=== PATIENT | female | born 1990 | race Caucasian/White ===

== ENCOUNTER 2018-10-22 03:05 | Emergency (ER) | payer MEDICAID ==
[~2018-10-22] VITALS: Ht 157.5 cm; Wt 68.0 kg
[2018-10-22 03:05] VITALS: BP 135/87
[~2018-10-22 03:05] MED LIST: IBUP-2213 PO
--- NOTE | 2018-10-22 03:13 | NUR ---
PT TO ER BED 10
--- NOTE | 2018-10-22 03:27 | NUR ---
PATIENT PRESENTS TO ED WITH vaginal bleeding. PT STATES she is 14 weeks , lower back pain started yesterday followed by heavy bleeding today. DENIES N/V/D; SKIN IS PINK/WARM/DRY; AAOX4; PT DENIES ANY FEVER, CP, SOB, OR COUGH AT THIS TIME; PATIENT STATES sharp PAIN OF 6/10 AT THIS TIME; VSS; PATIENT POSITIONED FOR COMFORT; HOB ELEVATED; BEDRAILS UP X2; BED DOWN. ER MD MADE AWARE OF PT STATUS. ED MD NOTIFIED OF PT CONDITION.
[2018-10-22 03:58] LABS: HEMOGLOBIN 11.8 g/dL (12.0-16.0); RED BLOOD CELL COUNT(AUTO) 4.82 MIL/uL (4.20-5.40); WHITE BLOOD COUNT (AUTO) 11.4 K/uL (4.8-10.8)
[2018-10-22 03:59] LABS: HEMATOCRIT 35.4 % (36-48); MEAN CORPUSCULAR HEMOGLOBIN 24 pg (27-31); MEAN CORPUSCULAR HGB CONC 31 g/dL (33-37); PLATELET COUNT (AUTO) 204 K/uL (140-450); RED CELL DISTRIBUTION WIDTH 21.9 % (11.6-13.7)
[2018-10-22 04:00] LABS: BASOPHILS % (AUTO) 2.4 % (0.0-2.0); EOSINOPHILS # (AUTO) 0.2 K/uL (0-0.4); EOSINOPHILS % (AUTO) 1.8 % (0.0-4.0); LYMPHOCYTES # (AUTO) 2.4 K/uL (2.5-16.5); LYMPHOCYTES % (AUTO) 20.8 % (20.5-51.1); MONOCYTES # (AUTO) 0.9 K/uL (0.8-1.0); MONOCYTES % (AUTO) 7.6 % (1.7-9.3); NEUTROPHILS # (AUTO) 7.6 K/uL (1.8-7.7); NEUTROPHILS % (AUTO) 67.4 % (42.2-75.2)
[2018-10-22 04:01] LABS: BASOPHILS # (AUTO) 0.3 K/uL (0.00-0.22)
[2018-10-22] MEDS ORDERED: ACETAMINOPHEN EXTRA STRENGTH 500 MG TAB PO ONE (04:15)
[2018-10-22] MEDS ORDERED: ONDANSETRON 4 MG/2 ML VIAL IVP ONE (04:35)
[2018-10-22] MEDS ORDERED: MORPHINE SULFATE 4 MG/ML SYR IVP ONE (04:35)
[2018-10-22 04:52] LABS: APPEARANCE,URINE CLOUDY (CLEAR); BILIRUBIN,URINE NEGATIVE (NEGATIVE); BLOOD, URINE LARGE (NEGATIVE); COLOR,URINE RED (YELLOW); LEUKOCYTE ESTERASE ,URINE TRACE (NEGATIVE); NITRITE, URINE NEGATIVE (NEGATIVE); PH,URINE 5.5 (5.0-9.0); UGLUCOSE NEGATIVE (NEGATIVE)
[2018-10-22 04:57] LABS: RBC,URINE TOO NUMEROUS TO COUN /HPF (0-5)
--- NOTE | 2018-10-22 05:02 | NUR ---
PATIENT EXPERIENCED SENSETIVITY TO MORPHINE, ONLY ADMINISTERED 0.5ML. ER MED NOTIFIED
[2018-10-22 05:25] VITALS: BP 148/86
--- NOTE | 2018-10-22 05:25 | NUR ---
Patient discharged with v/s stable. Written and verbal after care instructions given and explained. Patient alert, oriented and verbalized understanding of instructions. Ambulatory with steady gait. All questions addressed prior to discharge. ID band removed. Patient advised to follow up with PMD. Rx of NORCO AND ZOFRAN given. Patient educated on indication of medication including possible reaction and side effects. Opportunity to ask questions provided and answered.
== END 2018-10-22 05:25 | disposition home or self-care (01) ==
LOC: MED 03:05
DX: O03.4 Incomplete spontaneous abortion without complication (principal); Z3A.14 14 weeks gestation of pregnancy
CPT/HCPCS: 36415; 76830; 81001; 84702; 85025; 86900; 86901; 87086; 96374; 96375; 99284; J2270; J2405; Q0092

== ENCOUNTER 2018-10-22 10:36 | Emergency (ER) | payer MEDICAID ==
[~2018-10-22] VITALS: Ht 160 cm; Wt 56.7 kg
[2018-10-22 10:42] VITALS: BP 143/75
--- NOTE | 2018-10-22 10:50 | NUR ---
28 YO F BIB FAMILY AFTER MISCARRYNG AT HOME. PT WAS SEEN HERE AROUND 0300 TOLD NO HEARTBEAT AND GIVEN PAIN MEDS THEN D/C. PT PASSED THE BABY THIS MORNING. REPORTS BLEEDING AND ABD CRAMPING REQUESTING BEING SEEN TO MAKE SURE ALL REMNANTS HAVE BEEN SHED. DENIES N/V/D; SKIN IS PINK/WARM/DRY; AAOX4 WITH EVEN AND STEADY GAIT; LUNGS CLEAR BL; HR EVEN AND REGULAR; PT DENIES ANY FEVER, CP, SOB, OR COUGH AT THIS TIME; PATIENT STATES PAIN OF 5/10 AT THIS TIME; VSS; PATIENT POSITIONED FOR COMFORT; HOB ELEVATED; BEDRAILS UP X2; BED DOWN. ER MD MADE AWARE OF PT STATUS.
--- NOTE | 2018-10-22 11:07 | NUR ---
Dr. Obando at bedside.
[2018-10-22 11:22] VITALS: BP 143/75
--- NOTE | 2018-10-22 11:24 | NUR ---
Patient discharged with v/s stable. Written and verbal after care instructions given and explained. Patient verbalized understanding. Ambulatory with steady gait. All questions addressed prior to discharge. Advised to follow up with PMD.
== END 2018-10-22 11:24 | disposition home or self-care (01) ==
LOC: MED 10:36
DX: O03.9 Complete or unspecified spontaneous abortion without complication (principal); Z79.899 Other long term (current) drug therapy
CPT/HCPCS: 99281

== ENCOUNTER 2018-11-02 08:39 | Emergency (ER) | payer MEDICAID ==
[~2018-11-02] VITALS: Ht 160 cm; Wt 68.0 kg
--- NOTE | 2018-11-02 09:00 | NUR ---
ACCOMPANIED BY C/O HEAVY VAGINAL BLEEDING >7 [facility] [place] THIS AM---PALE APPEARING WITH ABDOMINAL CRAMPING ---SEEN IN OUR ER 10/22/2018 MISCARRIAGE HX---DENIES RX---NONE
[2018-11-02] MEDS ORDERED: NACL 0.9% 1,000 ML IV SCH (09:08)
[2018-11-02] MEDS ORDERED: KETOROLAC 30 MG/ML VIAL IVP ONE (09:10)
[2018-11-02] MEDS ORDERED: ONDANSETRON 4 MG/2 ML VIAL IVP ONE (09:10)
--- NOTE | 2018-11-02 09:27 | NUR ---
US AT BEDSIDE.
[2018-11-02 09:28] LABS: BASOPHILS # (AUTO) 0.1 K/uL (0.00-0.22); BASOPHILS % (AUTO) 0.5 % (0.0-2.0); EOSINOPHILS % (AUTO) 0.1 % (0.0-4.0); HEMATOCRIT 35.3 % (36-48); HEMOGLOBIN 11.5 g/dL (12.0-16.0); LYMPHOCYTES # (AUTO) 1.3 K/uL (2.5-16.5); LYMPHOCYTES % (AUTO) 11.3 % (20.5-51.1); MEAN CORPUSCULAR HEMOGLOBIN 26 pg (27-31); MEAN CORPUSCULAR HGB CONC 33 g/dL (33-37); MEAN CORPUSCULAR VOLUME 79.8 fL (80-94); MONOCYTES # (AUTO) 0.6 K/uL (0.8-1.0); MONOCYTES % (AUTO) 4.8 % (1.7-9.3); NEUTROPHILS # (AUTO) 9.9 K/uL (1.8-7.7); NEUTROPHILS % (AUTO) 83.3 % (42.2-75.2); PLATELET COUNT (AUTO) 220 K/uL (140-450); RED BLOOD CELL COUNT(AUTO) 4.42 MIL/uL (4.20-5.40); RED CELL DISTRIBUTION WIDTH 21.7 % (11.6-13.7); WHITE BLOOD COUNT (AUTO) 11.9 K/uL (4.8-10.8)
--- NOTE | 2018-11-02 09:46 | NUR ---
PT UP TO BR AMBULATORY W/ STE[facility]Y GATE, ACCOMPANIED BY
[2018-11-02 09:48] LABS: ANION GAP 13.6 (8-16); CARBON DIOXIDE 25.2 mmol/L (21-32); POTASSIUM 3.8 mmol/L (3.5-5.1)
[2018-11-02 09:49] LABS: ALBUMIN 3.3 g/dL (3.4-5.0); CREATININE 0.6 mg/dL (0.6-1.3); TOTAL BILIRUBIN 0.2 mg/dL (0.0-1.0)
--- NOTE | 2018-11-02 10:10 | NUR ---
Patient appears to be resting comfortably in bed. Vital Signs within normal limits. Respirations even and unlabored. at bedside
--- NOTE | 2018-11-02 10:40 | NUR ---
PT UP TO THE BR AMBULATORY W/STEADY GATE WE RN AT SIDE. UNDERPAD CHANGED.
--- NOTE | 2018-11-02 10:49 | NUR ---
PT BACK IN BED. AT BEDSIDE.
--- NOTE | 2018-11-02 12:01 | NUR ---
Patient discharged with v/s stable. Written and verbal after care instructions given and explained. Patient alert, oriented and verbalized understanding of instructions. Ambulatory with steady gait. All questions addressed prior to discharge. ID band removed. IV removed, cath intact, pressure and bandage applied. Patient advised to follow up with PMD. Rx of MOTRIN, ZOFRAN, AND NORCO given. Patient educated on indication of medication including possible reaction and side effects. Opportunity to ask questions provided and answered.
[2018-11-02 12:03] VITALS: BP 101/60
== END 2018-11-02 12:01 | disposition home or self-care (01) ==
LOC: MED 08:39
DX: N93.9 Abnormal uterine and vaginal bleeding, unspecified (principal); R10.30 Lower abdominal pain, unspecified; Z79.1 Long term (current) use of non-steroidal anti-inflammatories (NSAID)
CPT/HCPCS: 36415; 76856; 80053; 81002; 81025; 83690; 84702; 85025; 96374; 96375; 99284; J1885; J2405; J7030; Q0092

== ENCOUNTER 2024-01-04 14:30 | Observation (INO) | payer MEDICAID, OTHER ==
[~2024-01-04] VITALS: Ht 162.6 cm; Wt 78.5 kg
[2024-01-04 14:35] VITALS: BP 155/92; PULSE 81; RESP 16; TEMP 97.5; O2SAT 100
[2024-01-04 15:17] LABS: BASOPHILS # (AUTO) 0.1 K/uL (0.00-0.22); BASOPHILS % (AUTO) 1.1 % (0.0-2.0); EOSINOPHILS # (AUTO) 0.1 K/uL (0-0.4); EOSINOPHILS % (AUTO) 0.6 % (0.0-4.0); HEMATOCRIT 25.1 % (36-48); HEMOGLOBIN 7.3 g/dL (12.0-16.0); LYMPHOCYTES % (AUTO) 18.8 % (20.5-51.1); MEAN CORPUSCULAR HEMOGLOBIN 17 pg (27-31); MEAN CORPUSCULAR HGB CONC 29 g/dL (33-37); MEAN CORPUSCULAR VOLUME 57.7 fL (80-94); MONOCYTES # (AUTO) 0.5 K/uL (0.8-1.0); MONOCYTES % (AUTO) 4.9 % (1.7-9.3); NEUTROPHILS # (AUTO) 7.9 K/uL (1.8-7.7); NEUTROPHILS % (AUTO) 74.6 % (42.2-75.2); PLATELET COUNT (AUTO) 272 K/uL (140-450); RED BLOOD CELL COUNT(AUTO) 4.35 MIL/uL (4.20-5.40); RED CELL DISTRIBUTION WIDTH 20.4 % (11.6-13.7); WHITE BLOOD COUNT (AUTO) 10.6 K/uL (4.8-10.8)
[2024-01-04] MEDS: LORazepam 0.5 MG TAB PO ONE (15:24)
[2024-01-04 15:35] LABS: ANION GAP 10.4 (8-16); CALCIUM 8.8 mg/dL (8.5-10.1); CARBON DIOXIDE 28.2 mmol/L (21-32); CREATININE 0.7 mg/dL (0.6-1.3); POTASSIUM 3.6 mmol/L (3.5-5.1)
[2024-01-04] MEDS ORDERED: KETOROLAC 30 MG/ML VIAL ONE (17:47)
[2024-01-04] MEDS: KETOROLAC 30 MG/ML VIAL IVP ONE (17:51)
[2024-01-04 18:42] LABS: INR 0.94 (0.8-1.2); PARTIAL THROMBOPLASTIN TIME 22.8 secs (22-35.6); PROTHROMBIN TIME 9.9 secs (10.8-13.4)
[2024-01-04] MEDS: SODIUM CHLORIDE FLUSH 10 ML SYR IVF SCH (21:04)
[2024-01-04] MEDS: NACL 0.9% 1,000 ML IV SCH (21:04)
[2024-01-05] MEDS: HYDROcodone/APAP 5/325 MG 1 TAB TAB PO PRN (05:10)
[2024-01-05 07:09] LABS: BASOPHILS # (AUTO) 0.1 K/uL (0.00-0.22); BASOPHILS % (AUTO) 1.1 % (0.0-2.0); EOSINOPHILS # (AUTO) 0.2 K/uL (0-0.4); HEMATOCRIT 26.3 % (36-48); HEMOGLOBIN 7.9 g/dL (12.0-16.0); LYMPHOCYTES # (AUTO) 2.3 K/uL (2.5-16.5); LYMPHOCYTES % (AUTO) 27.5 % (20.5-51.1); MEAN CORPUSCULAR HEMOGLOBIN 18 pg (27-31); MEAN CORPUSCULAR HGB CONC 30 g/dL (33-37); MEAN CORPUSCULAR VOLUME 60.8 fL (80-94); MONOCYTES # (AUTO) 0.6 K/uL (0.8-1.0); MONOCYTES % (AUTO) 7.3 % (1.7-9.3); NEUTROPHILS # (AUTO) 5.1 K/uL (1.8-7.7); NEUTROPHILS % (AUTO) 62.1 % (42.2-75.2); PLATELET COUNT (AUTO) 247 K/uL (140-450); RED BLOOD CELL COUNT(AUTO) 4.33 MIL/uL (4.20-5.40); RED CELL DISTRIBUTION WIDTH 23.1 % (11.6-13.7); WHITE BLOOD COUNT (AUTO) 8.2 K/uL (4.8-10.8)
[2024-01-05 07:42] LABS: ANION GAP 11.4 (8-16); CALCIUM 8.2 mg/dL (8.5-10.1); CARBON DIOXIDE 26.5 mmol/L (21-32); CREATININE 0.6 mg/dL (0.6-1.3); POTASSIUM 3.9 mmol/L (3.5-5.1); TOTAL BILIRUBIN 0.4 mg/dL (0.0-1.0); TOTAL PROTEIN, SERUM 7.4 g/dL (6.4-8.2)
[2024-01-05] MEDS ORDERED: FERROUS SULFATE 325 MG TABEC PO SCH (08:00)
[2024-01-05 11:00] VITALS: PULSE 54; RESP 18; O2SAT 99
[2024-01-05 12:00] VITALS: BP 123/68; PULSE 54; PULSE 65; RESP 18; TEMP 97.5; O2SAT 99
[2024-01-05] MEDS: SODIUM FERRIC GLUCONATE 125 MG in NACL 0.9% 100 ML IV SCH (13:10)
[2024-01-05 16:00] VITALS: BP 143/76; PULSE 68; PULSE 73; RESP 18; TEMP 98; O2SAT 100
[2024-01-05 20:00] VITALS: BP 136/65; PULSE 63; PULSE 67; RESP 20; TEMP 98.8; O2SAT 96
[2024-01-05] MEDS: ONDANSETRON 4 MG/2 ML VIAL ONE (21:42)
[2024-01-05] MEDS: ACETAMINOPHEN 325 MG TAB PO PRN (21:51)
[2024-01-05] MEDS: medroxyPROGESTERone 10 MG TAB PO SCH (21:53)
[2024-01-06] VITALS: PULSE 81
[2024-01-06 04:00] VITALS: BP 134/65; PULSE 53; PULSE 61; RESP 18; TEMP 97.5; O2SAT 96
[2024-01-06 08:00] VITALS: BP 145/79; PULSE 64; RESP 17; RESP 18; TEMP 97.4; O2SAT 100
[2024-01-06] MEDS ORDERED: FERR1TAB42 PO (10:46)
[2024-01-06] MEDS ORDERED: ACET-1182 PO (10:46)
[2024-01-06] MEDS ORDERED: MEDR10TA33 PO (10:47)
[2024-01-06 11:44] LABS: BASOPHILS # (AUTO) 0.1 K/uL (0.00-0.22); BASOPHILS % (AUTO) 0.9 % (0.0-2.0); EOSINOPHILS # (AUTO) 0.2 K/uL (0-0.4); EOSINOPHILS % (AUTO) 1.8 % (0.0-4.0); HEMATOCRIT 27.9 % (36-48); HEMOGLOBIN 8.2 g/dL (12.0-16.0); LYMPHOCYTES # (AUTO) 2.2 K/uL (2.5-16.5); LYMPHOCYTES % (AUTO) 25.1 % (20.5-51.1); MEAN CORPUSCULAR HEMOGLOBIN 18 pg (27-31); MEAN CORPUSCULAR HGB CONC 30 g/dL (33-37); MEAN CORPUSCULAR VOLUME 61.2 fL (80-94); MONOCYTES # (AUTO) 0.5 K/uL (0.8-1.0); MONOCYTES % (AUTO) 6.2 % (1.7-9.3); NEUTROPHILS # (AUTO) 5.7 K/uL (1.8-7.7); PLATELET COUNT (AUTO) 267 K/uL (140-450); RED BLOOD CELL COUNT(AUTO) 4.56 MIL/uL (4.20-5.40); WHITE BLOOD COUNT (AUTO) 8.6 K/uL (4.8-10.8)
[2024-01-06 12:00] VITALS: BP 154/94; PULSE 63; RESP 16; TEMP 97.1; O2SAT 100
[2024-01-06 15:07] VITALS: BP 122/78; PULSE 63; RESP 16; TEMP 97.1
[2024-01-06] MEDS: DOCUSATE SOD/SENNA 50/8.6 MG 1 TAB PO PRN (15:38)
== END 2024-01-06 16:40 | disposition home or self-care (01) ==
LOC: MED 14:30 → MTU 18:35 → MMU 01-05 06:11
PROVIDERS: ADMIT Internal Medicine; ATTEND Internal Medicine
DX: D50.0 Iron deficiency anemia secondary to blood loss (chronic) (principal); N92.0 Excessive and frequent menstruation with regular cycle; R55 Syncope and collapse; E66.9 Obesity, unspecified; Z79.899 Other long term (current) drug therapy
CPT/HCPCS: 36415; 71045; 80048; 80053; 82607; 82728; 82746; 82948; 83540; 83735; 84484; 85025; 85610; 85730; 86308; 86886; 86900; 86901; 86920; 87081; 93005; 96361; 96365; 96366; 96375; 99285; G0378; J1885; J2916; P9016; Q0092; J2405

== ENCOUNTER 2024-01-08 18:48 | Emergency (ER) | payer OTHER ==
[~2024-01-08] VITALS: Ht 162.6 cm; Wt 81.6 kg
[~2024-01-08 18:48] MED LIST changes: +ACET-1182 PO; +FERR1TAB42 PO; +MEDR10TA33 PO
[2024-01-08 19:11] VITALS: BP 131/44; PULSE 85; RESP 16; TEMP 98.1; O2SAT 100
[2024-01-08 20:37] LABS: BASOPHILS # (AUTO) 0.1 K/uL (0.00-0.22); BASOPHILS % (AUTO) 0.8 % (0.0-2.0); EOSINOPHILS # (AUTO) 0.1 K/uL (0-0.4); EOSINOPHILS % (AUTO) 0.9 % (0.0-4.0); HEMATOCRIT 27.9 % (36-48); HEMOGLOBIN 8.2 g/dL (12.0-16.0); LYMPHOCYTES # (AUTO) 2.7 K/uL (2.5-16.5); MEAN CORPUSCULAR HEMOGLOBIN 19 pg (27-31); MEAN CORPUSCULAR HGB CONC 30 g/dL (33-37); MEAN CORPUSCULAR VOLUME 63.4 fL (80-94); MONOCYTES # (AUTO) 0.8 K/uL (0.8-1.0); MONOCYTES % (AUTO) 6.2 % (1.7-9.3); NEUTROPHILS # (AUTO) 8.7 K/uL (1.8-7.7); NEUTROPHILS % (AUTO) 70.1 % (42.2-75.2); PLATELET COUNT (AUTO) 283 K/uL (140-450); RED BLOOD CELL COUNT(AUTO) 4.39 MIL/uL (4.20-5.40); RED CELL DISTRIBUTION WIDTH 23.1 % (11.6-13.7); WHITE BLOOD COUNT (AUTO) 12.4 K/uL (4.8-10.8)
[2024-01-08] MEDS ORDERED: SULF-59 PO (22:22)
[2024-01-08] MEDS ORDERED: ACET-10509 PO (22:22)
== END 2024-01-08 22:27 | disposition home or self-care (01) ==
LOC: MED 18:48
DX: L03.113 Cellulitis of right upper limb (principal); I80.8 Phlebitis and thrombophlebitis of other sites; D64.9 Anemia, unspecified; N92.0 Excessive and frequent menstruation with regular cycle; Z79.899 Other long term (current) drug therapy
CPT/HCPCS: 36415; 85025; 93971; 99284

== ENCOUNTER 2024-04-14 14:51 | Emergency (ER) | payer OTHER ==
[~2024-04-14] VITALS: Ht 160 cm; Wt 79.4 kg
[~2024-04-14 14:51] MED LIST changes: +ACET-10509 PO; +SULF-59 PO
[2024-04-14 15:01] VITALS: BP 140/80; PULSE 87; RESP 18; TEMP 97.7; O2SAT 96
[2024-04-14 15:43] LABS: BILIRUBIN,URINE 1+ (NEGATIVE); BLOOD, URINE 3+ (NEGATIVE); LEUKOCYTE ESTERASE ,URINE 1+ (NEGATIVE); NITRITE, URINE POSITIVE (NEGATIVE); PROTEIN,URINE 2+ (NEGATIVE); UGLUCOSE NEGATIVE (NEGATIVE)
[2024-04-14 16:01] LABS: APPEARANCE,URINE BLOODY (CLEAR); COLOR,URINE RED (YELLOW)
[2024-04-14 16:03] LABS: ICTOTEST NEGATIVE (NEGATIVE)
[2024-04-14 16:06] LABS: RBC,URINE TOO NUMEROUS TO COUN /HPF (0-5)
[2024-04-14 16:07] LABS: BACTERIA,URINE >30 (MANY) /HPF (None Seen); MUCUS,URINE None Seen /LPF (None Seen); SQUAMOUS EPITHELIAL CELL,UR 0-3 (FEW) /LPF (0-3 (FEW))
[2024-04-14 17:03] LABS: BASOPHILS % (AUTO) 0.6 % (0.0-2.0); EOSINOPHILS # (AUTO) 0.1 K/uL (0-0.4); EOSINOPHILS % (AUTO) 1.6 % (0.0-4.0); HEMATOCRIT 41.6 % (36-48); HEMOGLOBIN 14.5 g/dL (12.0-16.0); LYMPHOCYTES % (AUTO) 37.5 % (20.5-51.1); MEAN CORPUSCULAR HEMOGLOBIN 30 pg (27-31); MEAN CORPUSCULAR HGB CONC 35 g/dL (33-37); MEAN CORPUSCULAR VOLUME 85.8 fL (80-94); MONOCYTES # (AUTO) 0.5 K/uL (0.8-1.0); MONOCYTES % (AUTO) 6.1 % (1.7-9.3); NEUTROPHILS # (AUTO) 4.3 K/uL (1.8-7.7); NEUTROPHILS % (AUTO) 54.2 % (42.2-75.2); PLATELET COUNT (AUTO) 229 K/uL (140-450); RED BLOOD CELL COUNT(AUTO) 4.85 MIL/uL (4.20-5.40); RED CELL DISTRIBUTION WIDTH 12.7 % (11.6-13.7); WHITE BLOOD COUNT (AUTO) 7.9 K/uL (4.8-10.8)
[2024-04-14 17:14] LABS: ANION GAP 10.7 (8-16); CALCIUM 9.3 mg/dL (8.5-10.1); CREATININE 0.6 mg/dL (0.6-1.3); POTASSIUM 3.7 mmol/L (3.5-5.1)
[2024-04-14 17:26] LABS: ALBUMIN 3.7 g/dL (3.4-5.0); BILIRUBIN,DIRECT 0.1 mg/dL (0.0-0.3); TOTAL BILIRUBIN 0.3 mg/dL (0.0-1.0); TOTAL PROTEIN, SERUM 7.5 g/dL (6.4-8.2)
[2024-04-14] MEDS ORDERED: IBUP-2213 PO (19:31)
[2024-04-14] MEDS ORDERED: CEPH-588 PO (19:31)
[2024-04-14 19:50] VITALS: BP 128/70; PULSE 88; RESP 18; TEMP 97.8; O2SAT 98
== END 2024-04-14 19:50 | disposition home or self-care (01) ==
LOC: MED 14:51
DX: N39.0 Urinary tract infection, site not specified (principal); N93.9 Abnormal uterine and vaginal bleeding, unspecified; N83.202 Unspecified ovarian cyst, left side; D25.9 Leiomyoma of uterus, unspecified; Z79.899 Other long term (current) drug therapy
CPT/HCPCS: 36415; 76830; 80048; 80076; 81001; 81025; 85025; 86886; 86900; 86901; 87086; 99284

== ENCOUNTER 2024-07-01 10:29 | Emergency (ER) | payer OTHER ==
[~2024-07-01] VITALS: Ht 160 cm; Wt 82.2 kg
[~2024-07-01 10:29] MED LIST changes: +CEPH-588 PO
[2024-07-01 10:33] VITALS: BP 125/79; PULSE 70; RESP 18; TEMP 97.9; O2SAT 95
[2024-07-01 11:05] LABS: BASOPHILS % (AUTO) 0.6 % (0.0-2.0); EOSINOPHILS # (AUTO) 0.1 K/uL (0-0.4); EOSINOPHILS % (AUTO) 1.8 % (0.0-4.0); HEMATOCRIT 41.8 % (36-48); HEMOGLOBIN 13.8 g/dL (12.0-16.0); LYMPHOCYTES # (AUTO) 2.2 K/uL (2.5-16.5); LYMPHOCYTES % (AUTO) 31.9 % (20.5-51.1); MEAN CORPUSCULAR HEMOGLOBIN 28 pg (27-31); MEAN CORPUSCULAR HGB CONC 33 g/dL (33-37); MEAN CORPUSCULAR VOLUME 83.3 fL (80-94); MONOCYTES # (AUTO) 0.4 K/uL (0.8-1.0); MONOCYTES % (AUTO) 5.3 % (1.7-9.3); NEUTROPHILS # (AUTO) 4.1 K/uL (1.8-7.7); NEUTROPHILS % (AUTO) 60.4 % (42.2-75.2); PLATELET COUNT (AUTO) 203 K/uL (140-450); RED BLOOD CELL COUNT(AUTO) 5.02 MIL/uL (4.20-5.40); RED CELL DISTRIBUTION WIDTH 13.9 % (11.6-13.7); WHITE BLOOD COUNT (AUTO) 6.8 K/uL (4.8-10.8)
[2024-07-01 11:19] LABS: APPEARANCE,URINE CLEAR (CLEAR); BILIRUBIN,URINE NEGATIVE (NEGATIVE); BLOOD, URINE NEGATIVE (NEGATIVE); COLOR,URINE YELLOW (YELLOW); LEUKOCYTE ESTERASE ,URINE NEGATIVE (NEGATIVE); NITRITE, URINE NEGATIVE (NEGATIVE); PH,URINE 5.5 (5.0-9.0); PROTEIN,URINE NEGATIVE (NEGATIVE); UGLUCOSE NEGATIVE (NEGATIVE); UROBILINOGEN,URINE 0.2 EU/dL (0.2 - 1)
[2024-07-01 11:26] LABS: ALBUMIN 3.7 g/dL (3.4-5.0); CALCIUM 9.7 mg/dL (8.5-10.1); CARBON DIOXIDE 29.6 mmol/L (21-32); CREATININE 0.8 mg/dL (0.6-1.3); POTASSIUM 3.6 mmol/L (3.5-5.1); TOTAL BILIRUBIN 0.4 mg/dL (0.0-1.0); TOTAL PROTEIN, SERUM 7.8 g/dL (6.4-8.2)
[2024-07-01 13:09] VITALS: BP 125/79; PULSE 70; RESP 18; TEMP 97.9; O2SAT 95
== END 2024-07-01 13:09 | disposition home or self-care (01) ==
LOC: MED 10:29
DX: N83.202 Unspecified ovarian cyst, left side (principal); Z79.1 Long term (current) use of non-steroidal anti-inflammatories (NSAID); Z79.899 Other long term (current) drug therapy
CPT/HCPCS: 36415; 76830; 80053; 81003; 81025; 83690; 85025; 99284; Q0092